=== PATIENT | male | born 1990 | race African-American/Black ===

== ENCOUNTER 2016-11-18 15:54 | Emergency (ER) | payer OTHER ==
[2016-11-18 15:56] VITALS: BP 129/75; PULSE 83; RESP 16; TEMP 98.2; O2SAT 99
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
[2016-11-18] MEDS ORDERED: CYCL1TAB29 PO (17:02)
[2016-11-18] MEDS ORDERED: MOTR200T4 PO (17:02)
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
== END 2016-11-18 17:23 | disposition home or self-care (01) ==
LOC: NEPK 15:54
DX: S39.012A Strain of muscle, fascia and tendon of lower back, initial encounter (principal); T14.8 Other injury of unspecified body region; V49.49XA Driver injured in collision with other motor vehicles in traffic accident, initial encounter; Y92.410 Unspecified street and highway as the place of occurrence of the external cause
CPT/HCPCS: 99283